=== PATIENT | female | born 1975 | race Two or more races ===

== ENCOUNTER 2019-01-20 17:45 | Emergency (ER) | payer OTHER ==
[~2019-01-20] VITALS: Ht 162.6 cm; Wt 82.0 kg
[2019-01-20 17:54] VITALS: BP 119/84
[2019-01-20] MEDS ORDERED: ACETAMINOPHEN 325 MG TABLET ONE (18:25)
[2019-01-20] MEDS ORDERED: ACETAMINOPHEN 325 MG TABLET PO ONE (18:30)
[2019-01-20] MEDS ORDERED: ALBUTEROL/IPRATROPIUM 2.5MG/0.5MG, 3 ML ONE (18:37)
[2019-01-20] MEDS: ALBUTEROL SULFATE 2.5 MG/3 ML NPPB SCH (18:42)
[2019-01-20] MEDS ORDERED: ALBUTEROL SULFATE 2.5 MG/3 ML ONE (19:16)
[2019-01-20] MEDS ORDERED: ALBUTEROL/IPRATROPIUM 2.5MG/0.5MG, 3 ML NPPB ONE (19:30)
--- NOTE | 2019-01-20 19:30 | NUR ---
PT. RECEIVING 2ND BREATHING TX.
--- NOTE | 2019-01-20 19:40 | NUR ---
DC EDUCATION PROVIDED, PT DEMONSTRATES UNDERSTANDING. PT AMBULATED STEADILY TO DC WITH RN
== END 2019-01-20 19:46 | disposition home or self-care (01) ==
LOC: ED 19:36
DX: J45.990 Exercise induced bronchospasm (principal); J45.21 Mild intermittent asthma with (acute) exacerbation
CPT/HCPCS: 71046; 94640; 99284; J7512; J7613; J7620